=== PATIENT | male | born 1970 | race Caucasian/White ===

== ENCOUNTER 2022-07-31 13:07 | Emergency (ER) | payer OTHER ==
[2022-07-31 13:16] VITALS: RESP 18
--- NOTE | 2022-07-31 13:43 | ED ---
General Adult HPI <Kwadwo Ocasio - Last Filed: 08/01/22 04:04> - General Source: patient, family Mode of arrival: ambulatory <Jamal Pierson - Last Filed: 08/04/22 16:05> - General Chief complaint: Psychiatric Symptoms Stated complaint: EPS eval Time Seen by Provider: 07/31/22 13:19 - History of Present Illness Initial comments: Dictation was produced using [employer] dictation software. please excuse any grammatical, word or spelling errors. Chief Complaint: 51-year-old male sent in by psychiatrist for psychiatric evaluation History of Present Illness: Is a 51-year-old male who presents with fianc and mother. Patient was evaluated by psychiatrist and was instructed to come to the emergency department. Patient has been having auditory hallucinations. Denies any suicidal or homicidal ideation. No visual hallucinations. No signs of paranoia. Apparently he had recent psychiatric bed changes. The ROS documented in this emergency department record has been reviewed and confirmed by me. Those systems with pertinent positive or negative responses have been documented in the HPI. All other systems are other negative and/or noncontributory. PHYSICAL EXAM: General Impression: Alert and oriented x3, not in acute distress HEENT: Normocephalic atraumatic, extra-ocular movements intact, pupils equal and reactive to light bilaterally, mucous membranes moist. Cardiovascular: Heart regular rate and rhythm Chest: Able to complete full sentences, no retractions, no tachypnea Abdomen: abdomen soft, non-tender, non-distended, no organomegaly Musculoskeletal: Pulses present and equal in all extremities, no peripheral edema Motor: no focal deficits noted Neurological: CN II-XII grossly intact, no focal motor or sensory deficits noted Skin: Intact with no visualized rashes Psych: Flat affect ED course: 51-year-old well-appearing male presents to the emergency department for psychiatric evaluation. He was sent in by psychiatrist. Vital Signs upon arrival are within acceptable limits. Patient is well-appearing and is physical examination benign. Patient medically cleared for EPS evaluation. Nursing notes and chart review was performed (Jamal Pierson) - Related Data Home Medications Medication Instructions Recorded Confirmed Benztropine Mesylate [Cogentin] 2 mg PO BID 07/31/22 07/31/22 Citalopram Hydrobromide [CeleXA] 40 mg PO HS 12/21/22 12/21/22 [place] Carbonate 300mg Tab 300 mg PO BID 07/31/22 07/31/22 Prazosin HCl 2 mg PO HS 07/31/22 07/31/22 Propranolol LA [Inderal LA] 60 mg PO DAILY 07/31/22 07/31/22 QUEtiapine FUMARATE [SEROquel] 300 mg PO HS 07/31/22 07/31/22 allopurinoL [Zyloprim] 300 mg PO DAILY 07/31/22 07/31/22 hydrOXYzine pamoate [Vistaril] 50 mg PO TID PRN 07/31/22 07/31/22 Allergies Allergy/AdvReac Type Severity Reaction Status Date / Time haloperidol [From Haldol] AdvReac Confusion/A Verified 07/31/22 15:25 ggression Review of Systems ROS Other: All systems not noted in ROS Statement are negative. <Kwadwo Ocasio - Last Filed: 08/01/22 04:04> ROS Other: All systems not noted in ROS Statement are negative. <Jamal Pierson - Last Filed: 08/04/22 16:05> ROS Statement: Those systems with pertinent positive or pertinent negative responses have been documented in the HPI. Past Medical History Past Medical History: Hypertension Additional Past Medical History / Comment(s): gout History of Any Multi-Drug Resistant Organisms: None Reported Past Surgical History: No Surgical Hx Reported Past Psychological History: Anxiety, Bipolar, Depression, Panic Disorder, PTSD Smoking Status: Current every day smoker Past Alcohol Use History: None Reported Past Drug Use History: Marijuana <Jamal Pierson - Last Filed: 08/04/22 16:05> Course Vital Signs 07/31/22 07/31/22 08/01/22 13:12 20:29 08:45 Temperature 98.4 F 98.3 F Pulse Rate 87 79 82 Respiratory 18 18 18 Rate Blood Pressure 135/97 144/88 148/91 O2 Sat by Pulse 94 L 96 97 Oximetry Medical Decision Making - Lab Data Result diagrams: 07/31/22 18:11 07/31/22 18:11 <Kwadwo Ocasio - Last Filed: 08/01/22 04:04> - Lab Data Result diagrams: 07/31/22 18:11 07/31/22 18:11 <Jamal Pierson - Last Filed: 08/04/22 16:05> - Medical Decision Making I saw this patient for the purpose of completing the clinical certificate. (Kwadwo Ocasio) Chart review was performed at a later date. Patient transferred to [facility] facility. (Jamal Pierson) - Lab Data Lab Results 07/31/22 07/31/22 07/31/22 Range/Units 18:11 18:11 19:38 WBC 14.0 H (3.8-10.6) k/uL RBC 5.65 (4.30-5.90) m/uL Hgb 17.7 H (13.0-17.5) gm/dL Hct 51.7 (39.0-53.0) % MCV 91.5 (80.0-100.0) fL MCH 31.3 (25.0-35.0) pg MCHC 34.1 (31.0-37.0) g/dL RDW 13.7 (11.5-15.5) % Plt Count 312 (150-450) k/uL MPV 8.2 Neutrophils % 70 % Lymphocytes % 19 % Monocytes % 7 % Eosinophils % 1 % Basophils % 1 % Neutrophils # 9.7 H (1.3-7.7) k/uL Lymphocytes # 2.7 (1.0-4.8) k/uL Monocytes # 1.0 (0-1.0) k/uL Eosinophils # 0.1 (0-0.7) k/uL Basophils # 0.1 (0-0.2) k/uL Sodium 140 (137-145) mmol/L Potassium 4.4 (3.5-5.1) mmol/L Chloride 108 H (98-107) mmol/L Carbon Dioxide 23 (22-30) mmol/L Anion Gap 9 mmol/L BUN 24 H (9-20) mg/dL Creatinine 1.23 (0.66-1.25) mg/dL Est GFR (CKD-EPI)AfAm 78 (>60 ml/min/1.73 sqM) Est GFR (CKD-EPI)NonAf 67 (>60 ml/min/1.73 sqM) Glucose 116 H (74-99) mg/dL Calcium 10.0 (8.4-10.2) mg/dL Total Bilirubin 1.0 (0.2-1.3) mg/dL AST 29 (17-59) U/L ALT 45 (4-49) U/L Alkaline Phosphatase 83 (38-126) U/L Total Protein 8.2 (6.3-8.2) g/dL Albumin 5.2 H (3.5-5.0) g/dL Urine Color Urine Appearance (Clear) Urine pH (5.0-8.0) Ur Specific Julian (1.001-1.035) Urine Protein (Negative) Urine Glucose (UA) (Negative) Urine Ketones (Negative) Urine Blood (Negative) Urine Nitrite (Negative) Urine Bilirubin (Negative) Urine Urobilinogen (<2.0) mg/dL Ur Leukocyte Esterase (Negative) Urine RBC (0-5) /hpf Urine WBC (0-5) /hpf Ur Squamous Epith Cells (0-4) /hpf Hyaline Casts (0-2) /lpf Urine Mucus (None) /hpf Urine Opiates Screen (NotDetected) Ur Oxycodone Screen (NotDetected) Urine Methadone Screen (NotDetected) Ur Propoxyphene Screen (NotDetected) Ur Barbiturates Screen (NotDetected) U Tricyclic Antidepress (NotDetected) Ur Phencyclidine Scrn (NotDetected) Ur Amphetamines Screen (NotDetected) U Methamphetamines Scrn (NotDetected) U Benzodiazepines Scrn (NotDetected) [place] 0.8 mmol/L Urine Cocaine Screen (NotDetected) U Marijuana (THC) Screen (NotDetected) Coronavirus (PCR) (Not Detectd) Influenza Type A RNA Not Detected (Not Detectd) Influenza Type B (PCR) Not Detected (Not Detectd) 07/31/22 08/01/22 Range/Units 19:38 03:21 WBC (3.8-10.6) k/uL RBC (4.30-5.90) m/uL Hgb (13.0-17.5) gm/dL Hct (39.0-53.0) % MCV (80.0-100.0) fL MCH (25.0-35.0) pg MCHC (31.0-37.0) g/dL RDW (11.5-15.5) % Plt Count (150-450) k/uL MPV Neutrophils % % Lymphocytes % % Monocytes % % Eosinophils % % Basophils % % Neutrophils # (1.3-7.7) k/uL Lymphocytes # (1.0-4.8) k/uL Monocytes # (0-1.0) k/uL Eosinophils # (0-0.7) k/uL Basophils # (0-0.2) k/uL Sodium (137-145) mmol/L Potassium (3.5-5.1) mmol/L Chloride (98-107) mmol/L Carbon Dioxide (22-30) mmol/L Anion Gap mmol/L BUN (9-20) mg/dL Creatinine (0.66-1.25) mg/dL Est GFR (CKD-EPI)AfAm (>60 ml/min/1.73 sqM) Est GFR (CKD-EPI)NonAf (>60 ml/min/1.73 sqM) Glucose (74-99) mg/dL Calcium (8.4-10.2) mg/dL Total Bilirubin (0.2-1.3) mg/dL AST (17-59) U/L ALT (4-49) U/L Alkaline Phosphatase (38-126) U/L Total Protein (6.3-8.2) g/dL Albumin (3.5-5.0) g/dL Urine Color Yellow Urine Appearance Cloudy (Clear) Urine pH 5.5 (5.0-8.0) Ur Specific Julian 1.037 H (1.001-1.035) Urine Protein 2+ H (Negative) Urine Glucose (UA) Negative (Negative) Urine Ketones 1+ H (Negative) Urine Blood Negative (Negative) Urine Nitrite Negative (Negative) Urine Bilirubin Negative (Negative) Urine Urobilinogen 2.0 (<2.0) mg/dL Ur Leukocyte Esterase Trace H (Negative) Urine RBC 3 (0-5) /hpf Urine WBC 6 H (0-5) /hpf Ur Squamous Epith Cells 11 H (0-4) /hpf Hyaline Casts 18 H (0-2) /lpf Urine Mucus Many H (None) /hpf Urine Opiates Screen Not Detected (NotDetected) Ur Oxycodone Screen Not Detected (NotDetected) Urine Methadone Screen Not Detected (NotDetected) Ur Propoxyphene Screen Not Detected (NotDetected) Ur Barbiturates Screen Not Detected (NotDetected) U Tricyclic Antidepress Detected H (NotDetected) Ur Phencyclidine Scrn Not Detected (NotDetected) Ur Amphetamines Screen Not Detected (NotDetected) U Methamphetamines Scrn Not Detected (NotDetected) U Benzodiazepines Scrn Detected H (NotDetected) [place] mmol/L Urine Cocaine Screen Not Detected (NotDetected) U Marijuana (THC) Screen Detected H (NotDetected) Coronavirus (PCR) Not Detected (Not Detectd) Influenza Type A RNA (Not Detectd) Influenza Type B (PCR) (Not Detectd) Disposition <Kwadwo Ocasio - Last Filed: 08/01/22 04:04> <Jaaml Pierson - Last Filed: 08/04/22 16:05> Clinical Impression: Psychosis Disposition: TRANSFER TO PSYCH HOSP/UNIT Condition: Fair Referrals: AGUILA MEJIA MD [Primary Care Provider] - 1-2 days
[2022-07-31 18:30] LABS: Albumin 5.2 g/dL (3.5-5.0); Lithium 0.8 mmol/L; Potassium 4.4 mmol/L (3.5-5.1); Total Protein 8.2 g/dL (6.3-8.2)
[2022-07-31 18:32] LABS: Basophils # (A) 0.1 k/uL (0-0.2); Basophils % (A) 1 %; Eosinophils # (A) 0.1 k/uL (0-0.7); Eosinophils % (A) 1 %; HCT 51.7 % (39.0-53.0); HGB 17.7 gm/dL (13.0-17.5); Lymphocytes # (A) 2.7 k/uL (1.0-4.8); Lymphocytes % (A) 19 %; MCH 31.3 pg (25.0-35.0); MCHC 34.1 g/dL (31.0-37.0); MCV 91.5 fL (80.0-100.0); Mean Platelet Volume 8.2; Monocytes % (A) 7 %; Neutrophils # (A) 9.7 k/uL (1.3-7.7); Neutrophils % (A) 70 %; Platelet Count 312 k/uL (150-450); RBC 5.65 m/uL (4.30-5.90); RDW 13.7 % (11.5-15.5)
[2022-07-31] MEDS ORDERED: MAG HYDROX/AL HYDROX/SIMETH 30 ML CUP PO PRN (19:21)
[2022-07-31] MEDS ORDERED: ONDANSETRON 4 MG/2 ML VIAL IVP STA (19:23)
[2022-07-31] MEDS ORDERED: hydrOXYzine HCL 25 MG TAB PO PRN (22:06)
[2022-07-31] MEDS ORDERED: QUEtiapine 100 MG TAB PO SCH (22:15)
[2022-08-01] MEDS: BENZTROPINE MESYLATE 1 MG TAB PO SCH ×2 (00:43→08:44)
[2022-08-01 03:45] LABS: Appearance,Urine Cloudy (Clear); Bilirubin,Urine Negative (Negative); Blood,Urine Negative (Negative); Color,Urine Yellow; Glucose,Urine (UA) Negative (Negative); Hyaline Casts,Urine 18 /lpf (0-2); Ketones,Urine 1+ (Negative); Leukocyte Esterase,Urine Trace (Negative); Mucus,Urine Many /hpf; Nitrite,Urine Negative (Negative); PH, Urine 5.5 (5.0-8.0); Protein,Urine 2+ (Negative); RBC,Urine 3 /hpf (0-5); Specific Gravity,Urine 1.037 (1.001-1.035); Squamous Epithelial Cell,Urine 11 /hpf (0-4); WBC,Urine 6 /hpf (0-5)
[2022-08-01 03:51] LABS: Amphetamine Screen,Urine Not Detected (NotDetected); Barbiturate Screen,Urine Not Detected (NotDetected); Benzodiazepines Screen,Urine Detected (NotDetected); Cocaine Screen,Urine Not Detected (NotDetected); Methadone Screen, Urine Not Detected (NotDetected); Opiate Screen,Urine Not Detected (NotDetected); Oxycodone Screen, Urine Not Detected (NotDetected); Phencyclidine Screen,Urine Not Detected (NotDetected); Tricyclic Antidepressant,Urine Detected (NotDetected); Urn Cannabinoid Scrn Detected (NotDetected)
[2022-08-01 08:44] VITALS: BP 148/91; PULSE 82; TEMP 98.3
[2022-08-01] MEDS ORDERED: allopurinoL 300 MG TAB PO SCH (09:00)
[2022-08-01] MEDS ORDERED: PROPRANOLOL LA 60 MG CAP.SA.24H PO SCH (09:00)
[2022-08-01] MEDS ORDERED: GABAPENTIN 300 MG CAP PO SCH (22:43)
== END 2022-08-01 09:45 ==
LOC: EC 13:07
DX: F29 Unspecified psychosis not due to a substance or known physiological condition (principal); I10 Essential (primary) hypertension; F31.9 Bipolar disorder, unspecified; F41.9 Anxiety disorder, unspecified; F17.200 Nicotine dependence, unspecified, uncomplicated; F12.90 Cannabis use, unspecified, uncomplicated; Z88.8 Allergy status to other drugs, medicaments and biological substances; Z79.899 Other long term (current) drug therapy; Z20.822 Contact with and (suspected) exposure to COVID-19
CPT/HCPCS: 99285; 96374; 82075; 36415; 80053; 80178; 85025; 81001; 80306; 87502; 87635; J2405